=== PATIENT | male | born 1970 | race Two or more races ===

== ENCOUNTER 2020-03-30 12:46 | Emergency (ER) | payer OTHER ==
[~2020-03-30] VITALS: Ht 185.4 cm; Wt 95.3 kg
[2020-03-30] MEDS ORDERED: ACID REDUCER20 M1 PO (13:05)
== END 2020-03-30 16:12 | disposition home or self-care (01) ==
LOC: ER 12:46
DX: R59.1 Generalized enlarged lymph nodes (principal); M54.2 Cervicalgia